=== PATIENT | female | born 1960 ===

== ENCOUNTER → 2018-11-21 | Outpatient (CLI) | payer BC ==
[~2018-11-21] VITALS: Ht 160 cm; Wt 57.0 kg
[2018-11-21] VITALS (10 sets, daily range): BP systolic 118–167; BP diastolic 72–86; PULSE 54–69
[2018-11-21 12:41] LABS: INR 0.9 (0.8-3.0); PROTHROMBIN TIME 10.1 SECONDS (9.7-12.8)
--- NOTE | 2018-11-21 13:35 | NUR ---
PT TAKENT TO CT AMBULATORY AND PLACED IN POSITION. MONITORING EQUIPMENT PLACED. 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 TIMEOUT DONE WITH DR GOODRICH AND STAFF
--- NOTE | 2018-11-21 13:40 | NUR ---
PT DOING WELL. NO PAIN PRESENTLY
--- NOTE | 2018-11-21 13:45 | NUR ---
PT DOING WELL. HAVING NO PAIN.
--- NOTE | 2018-11-21 13:50 | NUR ---
PROCEDURE COMPLETE. SAMPLES IN FORMALIN. MONITORING EQUIPMENT REMOVED AND BANDAIDE TO SITE. SITE IS [facility]. PT TAKEN BY WHEELCHAIR TO [facility]
== END ==
LOC: COL.RAD 11:50
PROVIDERS: Internal Medicine Medical Oncology
DX: C64.2 Malignant neoplasm of left kidney, except renal pelvis (principal); C78.7 Secondary malignant neoplasm of liver and intrahepatic bile duct; C79.72 Secondary malignant neoplasm of left adrenal gland

== ENCOUNTER → 2021-03-11 | Outpatient (CLI) | payer BC | LOC: MC.RAD 02-16 11:30 | DX: Z12.31 Encounter for screening mammogram for malignant neoplasm of breast (principal) ==

== ENCOUNTER 2022-03-10 06:04 | Day surgery (SDC) | payer BC ==
[~2022-03-10] VITALS: Ht 160 cm; Wt 74.8 kg
[2022-03-10] MEDS ORDERED: FEMARA PO (06:38)
[2022-03-10 06:39] VITALS: BP 124/77; PULSE 74; TEMP 977
--- NOTE | 2022-03-10 07:23 | NUR ---
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 Mosquera, all parties decided to not proceed with the colonoscopy; pt verbalized she is comfortable with the decision; PIV discontinued; pt and daughter escorted to front entrance to [facility].
== END 2022-03-10 07:30 | disposition home or self-care (01) ==
LOC: SDCO 06:04
DX: Z12.11 Encounter for screening for malignant neoplasm of colon (principal); Z53.9 Procedure and treatment not carried out, unspecified reason
CPT/HCPCS: J2704; J7030